=== PATIENT | female | born 2000 | race American Indian/Alaskan Native ===

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

== ENCOUNTER 2021-11-28 14:46 | Outpatient (CLI) | payer MEDICAID ==
[2021-11-28 15:17] VITALS: BP 123/72
--- NOTE | 2021-11-28 17:15 | Ultrasound Report ---
US OB BPP wo non-stress, US OB limited INDICATION: BPP, ELDA for wellbeing. TECHNIQUE: Transabdominal. COMPARISON: None available. FINDINGS: There is a single intrauterine . Heart Rate: 166 beats per minute. Position: cephalic. Amniotic Fluid Volume: normal Amniotic Fluid Index (ELDA) in cm (if calculated): 11.6. Biophysical Profile: breathing movements: 2 movements:2 posture and tone:2 Qualitative amniotic fluid volume: 2 IMPRESSION: 1. Amniotic fluid is normal. Biophysical profile is 8/8. Signer Name: Efren Christian MD Signed: 11/28/2021 5:11 PM Workstation Name: [id number]
== END 2021-11-28 17:36 | disposition home or self-care (01) ==
LOC: TRG 14:46 → APU 14:47 → TRG 17:36
PROVIDERS: ATTEND Obstetrics & Gynecology
DX: Z34.93 Encounter for supervision of normal pregnancy, unspecified, third trimester (principal); Z3A.39 39 weeks gestation of pregnancy
CPT/HCPCS: 76815; 76819

== ENCOUNTER 2021-11-29 22:21 | Inpatient (IN) | payer MEDICAID ==
[2021-11-30] MEDS ORDERED: METHYLERGONOVINE MALEATE 0.2 MG/ML VIAL IM PRN (00:21)
[2021-11-30] MEDS ORDERED: LOPERAMIDE 2 MG CAP PO PRN (00:21)
[2021-11-30] MEDS ORDERED: fentaNYL 100 MCG/2 ML INJ IV PRN (00:21)
[2021-11-30] MEDS ORDERED: MINERAL OIL 30 ML ORAL LIQD PO PRN (00:21)
[2021-11-30] MEDS ORDERED: CARBOPROST TROMETHAMINE 250 MCG/1 ML INJ IM PRN (00:21)
[2021-11-30] MEDS ORDERED: LIDOCAINE (2%) 20 MG/1 ML VIAL 20 ML MDV INFILTRATI ONE (00:21)
[2021-11-30] MEDS ORDERED: ePHEDrine SULFATE 50 MG/1 ML INJ IV PRN ×2 (00:21→06:35)
[2021-11-30] MEDS ORDERED: miSOPROStol 200 MCG TAB PR PRN (00:21)
[2021-11-30] MEDS ORDERED: OXYTOCIN 10 UNIT/1 ML INJ IM PRN (00:21)
[2021-11-30] MEDS ORDERED: AMPICILLIN/NS 2 GM/100 ML 2 GM/100 ML BAG IV ONE (00:21)
[2021-11-30] MEDS ORDERED: ACETAMINOPHEN 325 MG TAB PO PRN (00:21)
[2021-11-30] MEDS ORDERED: TERBUTALINE 1 MG/1 ML INJ SUB-Q PRN (00:21)
[2021-11-30] MEDS ORDERED: NalbUPHINE 10 MG/1 ML INJ IV PRN (00:21)
--- NOTE | 2021-11-30 00:52 | History and Physical Report ---
History of Present Illness Date of examination: 11/30/21 Date of admission: 11/30/2021 Chief complaint: Contractions History of present illness: 21 year old presents to L&D with contractions. Patient received care at [facility]. No records are available but records have been requested. Patient states her EDC is 11/30/21 (patient states this EDC was based on 8 week US). Patient is unsure about when her LMP was but thinks it was in January 2021. Patient reports she felt leaking of fluid about 3 hours ago but has not continued to leak and ROM plus is negative in triage. significant for the following: GBS positive, obesity. labs were drawn upon patient's arrival in L&D. Past History Past Medical History: other (obesity) Past Surgical History: no surgical history [facility] History: denies: abnormal PAP smear, chlamydia, gonorrhea, hepatitis B, hepatitis C, herpes, HIV, syphilis, trichomonas Family/Genetic History: none Social history: lives with family, full code. denies: smoking, alcohol abuse, prescription drug abuse, IV drug use - Obstetrical History Expected Date of Delivery: 11/30/21 Actual Gestation: 40 Week(s) 0 Day(s) : 1 Para: 0 Hx # Term Pregnancies: 0 Number of Pregnancies: 0 Spontaneous Abortions: 0 Induced : 0 Number of Living Children: 0 Medications and Allergies Allergies Allergy/AdvReac Type Severity Reaction Status Date / Time No Known Allergies Allergy Verified 11/29/21 22:38 Active Meds: Active Medications Acetaminophen (Acetaminophen 325 Mg Tab) 650 mg PO Q4H PRN PRN Reason: Pain, Mild (1-3) Carboprost Tromethamine (Carboprost Tromethamine 250 Mcg/1 Ml Inj) 250 mcg IM ONCE PRN PRN Reason: Uterine Bleeding Ephedrine Sulfate (Ephedrine Sulfate 50 Mg/1 Ml Inj) 10 mg IV Q2M PRN PRN Reason: Hypotension Fentanyl (Fentanyl 100 Mcg/2 Ml Inj) 100 mcg IV Q2H PRN PRN Reason: Pain,Severe (7-10) LABOR PAIN Oxytocin/Sodium Chloride (Pitocin/Ns 30 Unit/500ml) 30 units in 500 mls @ 2 mls/hr IV TITR GLEN; Protocol Lactated Ringer's (Lactated Ringers) 1,000 mls @ 125 mls/hr IV DIRECT GLEN Oxytocin/Sodium Chloride (Pitocin/Ns 30 Unit/500ml) 30 units in 500 mls @ 40 mls/hr IV TITR GLEN; Protocol Ampicillin Sodium (Ampicillin/Ns 2 Gm/100 Ml) 2 gm in 100 mls @ 100 mls/hr IV ONCE ONE; Protocol Stop: 11/30/21 01:20 Ampicillin Sodium (Ampicillin/Ns 1 Gm/50 Ml) 1 gm in 50 mls @ 100 mls/hr IV Q4H GLEN; Protocol Loperamide HCl (Loperamide 2 Mg Cap) 2 mg PO ONCE PRN PRN Reason: give with Hemabate Methylergonovine Maleate (Methylergonovine Maleate 0.2 Mg/Ml Vial) 0.2 mg IM ONCE PRN PRN Reason: Uterine Bleeding Mineral Oil (Mineral Oil 30 Ml Oral Liqd) 30 ml PO QHS PRN PRN Reason: Constipation Misoprostol (Misoprostol 200 Mcg Tab) 800 mcg ME ONCE PRN PRN Reason: Uterine Bleeding Nalbuphine HCl (Nalbuphine 10 Mg/1 Ml Inj) 10 mg IV Q2H PRN PRN Reason: Pain, Moderate (4-6) Oxytocin (Oxytocin 10 Unit/1 Ml Inj) 10 unit IM ONCE PRN PRN Reason: Uterine Bleeding Terbutaline Sulfate (Terbutaline 1 Mg/1 Ml Inj) 0.25 mg SUB-Q ONCE PRN PRN Reason: Hyperstimulation/Hypertonicity Review of Systems All systems: negative (contractions, leaking of fluid) - Vital Signs Vital signs: Vital Signs Temp Pulse Resp BP 98.6 F 84 18 136/78 11/29/21 22:47 11/29/21 22:47 11/29/21 22:47 11/29/21 22:47 Temp Pulse Resp BP Pulse Ox 98.6 F 82 18 140/86 96 11/29/21 22:47 11/30/21 00:47 11/29/21 22:47 11/29/21 23:53 11/30/21 00:47 - Physical Exam Abdomen: Positive: normal appearance, soft. Negative: distention, tenderness, g uarding, rigidity Genitourinary (Female): Positive: normal external genitalia, normal perenium. Negative: perineal/vulvar lesions Vagina: Positive: other (small amount of clear fluid noted) Uterus: Positive: enlarged. Negative: tender Anus/Rectum: Positive: normal perianal skin Extremities: Negative: tenderness - Obstetrical FHR: category 1 Uterine Contraction Monitor Mode: External Cervical Dilatation: 6 Cervical Effacement Percentage: 80 (bulging forebag) station: -3 Uterine Contraction Pattern: Regular Uterine Contraction Intensity: Moderate Results Result Diagrams: 11/30/21 01:00 All other labs normal. Assessment and Plan A: at 40 weeks gestation. Active labor. GBS positive. Obesity. No records available. P: Admit. EFM. GBS prophylaxis. Epidural if desired. records requested. labs drawn upon admission.
[2021-11-30] MEDS ORDERED: OXYTOCIN DRIP 30 UNITS/500 ML BAG IV SCH ×3 (01:00→19:34)
[2021-11-30 01:18] LABS: Hematocrit 40.6 % (30.3-42.9); Hemoglobin 13.1 gm/dl (10.1-14.3); Mean Corpuscular HGB Conc 32 % (30-34); Mean Corpuscular Volume 84 fl (79-97); Platelet Count 175 K/mm3 (140-440); Red Blood Count 4.85 M/mm3 (3.65-5.03); Red Cell Distribution Width 13.7 % (13.2-15.2)
[2021-11-30 01:32] LABS: Alanine Aminotransferase 7 units/L (7-56); Albumin 3.5 g/dL (3.9-5); Blood Urea Nitrogen 9 mg/dL (7-17); Calcium 8.8 mg/dL (8.4-10.2); Hemolysis Index 1
[2021-11-30 01:38] LABS: BUN/Creatinine Ratio 18
[2021-11-30 01:42] LABS: Hepatitis C Virus Antibody Non-Reactive (NonReactive)
[2021-11-30] MEDS: LACTATED RINGERS 1,000 ML IV SCH ×4 (01:46→15:53)
[2021-11-30 02:30] LABS: Uric Acid 3.9 mg/dL (3.5-7.6)
--- NOTE | 2021-11-30 02:49 | Ultrasound Report ---
US OB LIMITED INDICATION / CLINICAL INFORMATION: Location of placenta, EFW, and EDC. COMPARISON: None available. FINDINGS: There is a single intrauterine with an estimated sonographic gestational age of 34 weeks 6 days and an EDC of 01/05/22. The heart rate is 137 bpm. presentation is cephalic. The bijal centa is located laterally on the right, is grade 2 and is free of the os. The estimated weight is 2901 +/- 429 g. Signer Name: Akbar Martines MD Signed: 11/30/2021 2:44 AM Workstation Name: [id number]
[2021-11-30] MEDS ORDERED: BETAMET ACET/BETAMET NA PH 6 MG/ML INJ 5 ML MDV IM ONE (03:08)
--- NOTE | 2021-11-30 03:15 | Event Note ---
Date: 11/30/21 Have requested records twice but so far have not received records. So US was ordered for placental location, EFW, EDC. US report says EGA of 34 weeks, 6 days. Celestone ordered. serology panel negative, rubella immune. Will inform re: discrepancy in gestational age. Spoke with patient re: this.
[2021-11-30] MEDS ORDERED: BUPIVACAINE/PF (0.25%) 2.5 MG/ML 10 ML VIAL INFILTRATI ONE (06:01)
[2021-11-30] MEDS: AMPICILLIN/NS 1 GM/50 ML 1 GM/50 ML BAG IV SCH ×3 (06:15→13:48)
--- NOTE | 2021-11-30 06:34 | Anesthesia Consultation ---
Anesthesia Consult and Med Hx Date of service: 11/30/21 - Airway Anesthetic Teeth Evaluation: Poor ROM Head & Neck: Adequate Mental/Hyoid Distance: Adequate Mallampati Class: Class II Intubation Access Assessment: Probably Good - Pulmonary Exam CTA: Yes - Cardiac Exam Cardiac Exam: RRR - Pre-Operative Health Status ASA Pre-Surgery Classification: ASA2 Proposed Anesthetic Plan: Epidural - Pulmonary Hx Smoking: No Hx Asthma: No Hx Respiratory Symptoms: No SOB: No COPD: No - Cardiovascular System Hx Hypertension: No - Central Nervous System Hx Neuromuscular Disorder: No Hx Seizures: No Hx Back Pain: No Hx Psychiatric Problems: No - Gastrointestinal Hx Gastroesophageal Reflux Disease: Yes - Endocrine Hx Renal Disease: No Hx End Stage Renal Disease: No Hx Hypothyroidism: No Hx Hyperthyroidism: No - Hematic Hx Anemia: Yes Hx Sickle Cell Disease: No - Other Systems Hx Alcohol Use: No Hx Substance Use: Yes Hx Obesity: Yes
[2021-11-30] MEDS ORDERED: NALOXONE 2 MG/2 ML INJ IV PRN (06:35)
--- NOTE | 2021-11-30 06:35 | Progress Note ---
Labor Epidural - Labor Epidural Start Time: 06:10 Stop Time: 06:20 Performed by:: JEFF DE SANTIAGO Procedure: Patient is requesting epidural for labor pain. H&P and labs reviewed. Procedure explained, questions answered, consent obtained. Patient placed in sitting position with monitors applied. Timeout performed immediately before start of procedure. Prep/drape in usual sterile fashion. Skin localized 3 mL 1% lidocaine at L[3]-L[4] interspace. 17-gauge Tuohy epidural needle advanced to ELIEZER with saline at [8] cm. No blood/CSF noted via epidural needle. Epidural catheter advanced to [12] cm. Negative aspiration for blood and CSF via catheter, negative response to test dose 3 ml 1.5% lidocaine w/ Epi. Sterile dressing applied followed by tape reinforcement. Patient tolerated procedure well. No immediate complications noted.
--- NOTE | 2021-11-30 06:38 | Event Note ---
Date: 11/30/21 SVE /-3.
[2021-11-30] MEDS: fentaNYL-BUPIV 2 MCG/ML-0.125% 200 MCG/100 ML BAG EPIDURAL SCH ×2 (07:00→15:47)
[2021-11-30 08:19] LABS: Bilirubin,Urine NEG (Negative); Blood,Urine NEG (Negative); Color,Urine Yellow (Yellow); RBC,Urine < 1.0 /HPF (0.0-6.0); Urobilinogen,Urine < 2.0 mg/dL (<2.0)
--- NOTE | 2021-11-30 08:24 | Event Note ---
Date: 11/30/21 pt evaluated when no records available in [facility] records per my construction sales manager, Jovanna. I spoke with patient in detail and she gave me her follow up clinic card which is not from [facility] but had a pic for [facility] therefore pt to be transferred to Dr. Flanagan and charge nurse aware. Pt also told the plan and GINA Kerr sent a text to Dr. Flanagan and I left a voicemail on his personal phone. Plan of care to be transferred back to [facility] her actual care provider. All questions encouraged and answered. I also later received confirmation via Dr. Flanagan via text that he will take over care of the patient and on the way to the hospital.
[2021-11-30 08:29] LABS: Amphetamine Screen,Urine Negative; Benzodiazepines Screen,Urine Negative; Cannabinoid Screen,Urine Negative; Cocaine Screen,Urine Negative; Methadone Screen,Urine Negative; Opiate Screen,Urine Negative
[2021-11-30] MEDS ORDERED: OXYTOCIN DRIP 30,000 MILLIUNITS/500 ML BAG IV ONE (12:00)
--- NOTE | 2021-11-30 12:01 | Progress Note ---
Assessment and Plan - Patient Problems (1) Active labor at term Current Visit: Yes Status: Acute Plan to address problem: Patient with no change in cervix. Discussed with the patient procedure rupture membranes and placed in internal monitoring to monitor the baby's heart rate and the strength of her contractions. Also discussed starting Pitocin augmentation. All patient's questions answered desires to proceed. Performed artificial partial rupture of membranes revealing clear fluid. Intrauterine pressure catheter and scalp electrode placed. (2) Small for dates affecting management of mother Current Visit: Yes Status: Acute Qualifiers: Fetus number: single or unspecified fetus Trimester: third trimester Qualified Code(s): O36.5930 - Maternal care for other known or suspected poor growth, third trimester, not applicable or unspecified Subjective - Subjective Date of service: 11/30/21 Interval history: Patient comfortable with epidural Patient reports: movement normal, contractions (Irregular) Objective - Vital Signs Vital Signs: Vital Signs - 12hr 11/30/21 11/30/21 11/30/21 00:03 00:08 00:47 Temperature Pulse Rate 76 85 82 Respiratory Rate Blood Pressure Blood Pressure [Left] O2 Sat by Pulse 99 99 96 Oximetry O2 Sat by Pulse Oximetry [ Anterior Bilateral Throughout] 11/30/21 11/30/21 11/30/21 00:52 00:53 00:57 Temperature 97.9 F Pulse Rate 82 86 88 Respiratory 20 Rate Blood Pressure 130/86 Blood Pressure [Left] O2 Sat by Pulse 98 94 97 Oximetry O2 Sat by Pulse 98 Oximetry [ Anterior Bilateral Throughout] 11/30/21 11/30/21 11/30/21 01:02 01:03 01:07 Temperature Pulse Rate 97 H 84 74 Respiratory Rate Blood Pressure Blood Pressure [Left] O2 Sat by Pulse 96 94 96 Oximetry O2 Sat by Pulse Oximetry [ Anterior Bilateral Throughout] 11/30/21 11/30/21 11/30/21 01:12 01:17 01:22 Temperature Pulse Rate 83 85 89 Respiratory Rate Blood Pressure Blood Pressure [Left] O2 Sat by Pulse 96 99 96 Oximetry O2 Sat by Pulse Oximetry [ Anterior Bilateral Throughout] 11/30/21 11/30/21 11/30/21 01:27 01:32 01:37 Temperature Pulse Rate 65 93 H 80 Respiratory Rate Blood Pressure Blood Pressure [Left] O2 Sat by Pulse 98 100 98 Oximetry O2 Sat by Pulse Oximetry [ Anterior Bilateral Throughout] 11/30/21 11/30/21 11/30/21 01:42 01:43 01:47 Temperature Pulse Rate 84 90 84 Respiratory Rate Blood Pressure 128/82 Blood Pressure [Left] O2 Sat by Pulse 98 98 Oximetry O2 Sat by Pulse Oximetry [ Anterior Bilateral Throughout] 11/30/21 11/30/21 11/30/21 01:52 01:57 02:02 Temperature Pulse Rate 88 81 86 Respiratory Rate Blood Pressure Blood Pressure [Left] O2 Sat by Pulse 99 97 99 Oximetry O2 Sat by Pulse Oximetry [ Anterior Bilateral Throughout] 11/30/21 11/30/21 11/30/21 02:07 02:12 02:17 Temperature Pulse Rate 89 90 82 Respiratory Rate Blood Pressure Blood Pressure [Left] O2 Sat by Pulse 98 98 96 Oximetry O2 Sat by Pulse Oximetry [ Anterior Bilateral Throughout] 11/30/21 11/30/21 11/30/21 02:22 02:27 02:32 Temperature Pulse Rate 84 89 88 Respiratory Rate Blood Pressure Blood Pressure [Left] O2 Sat by Pulse 97 95 97 Oximetry O2 Sat by Pulse Oximetry [ Anterior Bilateral Throughout] 11/30/21 11/30/21 11/30/21 02:37 02:42 02:47 Temperature Pulse Rate 87 79 78 Respiratory Rate Blood Pressure Blood Pressure [Left] O2 Sat by Pulse 98 99 98 Oximetry O2 Sat by Pulse Oximetry [ Anterior Bilateral Throughout] 11/30/21 11/30/21 11/30/21 02:52 03:09 03:14 Temperature Pulse Rate 82 88 79 Respiratory Rate Blood Pressure Blood Pressure [Left] O2 Sat by Pulse 98 96 98 Oximetry O2 Sat by Pulse Oximetry [ Anterior Bilateral Throughout] 11/30/21 11/30/21 11/30/21 03:19 03:24 03:29 Temperature Pulse Rate 77 79 80 Respiratory Rate Blood Pressure Blood Pressure [Left] O2 Sat by Pulse 100 100 99 Oximetry O2 Sat by Pulse Oximetry [ Anterior Bilateral Throughout] 11/30/21 11/30/21 11/30/21 03:34 03:39 03:44 Temperature Pulse Rate 84 81 91 H Respiratory Rate Blood Pressure Blood Pressure [Left] O2 Sat by Pulse 99 99 99 Oximetry O2 Sat by Pulse Oximetry [ Anterior Bilateral Throughout] 11/30/21 11/30/21 11/30/21 03:49 03:54 03:59 Temperature Pulse Rate 89 88 94 H Respiratory Rate Blood Pressure Blood Pressure [Left] O2 Sat by Pulse 100 99 100 Oximetry O2 Sat by Pulse Oximetry [ Anterior Bilateral Throughout] 11/30/21 11/30/21 11/30/21 04:04 04:09 04:14 Temperature Pulse Rate 94 H 79 82 Respiratory Rate Blood Pressure Blood Pressure [Left] O2 Sat by Pulse 98 100 100 Oximetry O2 Sat by Pulse Oximetry [ Anterior Bilateral Throughout] 11/30/21 11/30/21 11/30/21 04:19 04:24 04:29 Temperature Pulse Rate 90 86 82 Respiratory Rate Blood Pressure Blood Pressure [Left] O2 Sat by Pulse 98 99 99 Oximetry O2 Sat by Pulse Oximetry [ Anterior Bilateral Throughout] 11/30/21 11/30/21 11/30/21 04:34 04:39 04:44 Temperature Pulse Rate 81 94 H 81 Respiratory Rate Blood Pressure Blood Pressure [Left] O2 Sat by Pulse 100 98 100 Oximetry O2 Sat by Pulse Oximetry [ Anterior Bilateral Throughout] 11/30/21 11/30/21 11/30/21 04:47 04:49 04:54 Temperature Pulse Rate 82 86 84 Respiratory Rate Blood Pressure Blood Pressure [Left] O2 Sat by Pulse 94 98 99 Oximetry O2 Sat by Pulse Oximetry [ Anterior Bilateral Throughout] 11/30/21 11/30/21 11/30/21 05:06 05:11 05:16 Temperature Pulse Rate 96 H 88 78 Respiratory Rate Blood Pressure Blood Pressure [Left] O2 Sat by Pulse 100 99 99 Oximetry O2 Sat by Pulse Oximetry [ Anterior Bilateral Throughout] 11/30/21 11/30/21 11/30/21 05:21 05:26 05:31 Temperature Pulse Rate 84 79 90 Respiratory Rate Blood Pressure Blood Pressure [Left] O2 Sat by Pulse 98 100 98 Oximetry O2 Sat by Pulse Oximetry [ Anterior Bilateral Throughout] 11/30/21 11/30/21 11/30/21 05:36 05:41 05:46 Temperature Pulse Rate 89 83 87 Respiratory Rate Blood Pressure Blood Pressure [Left] O2 Sat by Pulse 99 99 99 Oximetry O2 Sat by Pulse Oximetry [ Anterior Bilateral Throughout] 11/30/21 11/30/21 11/30/21 05:47 05:51 05:56 Temperature Pulse Rate 88 86 96 H Respiratory Rate Blood Pressure 119/73 Blood Pressure [Left] O2 Sat by Pulse 99 99 Oximetry O2 Sat by Pulse Oximetry [ Anterior Bilateral Throughout] 11/30/21 11/30/21 11/30/21 05:59 06:01 06:02 Temperature Pulse Rate 80 88 89 Respiratory Rate Blood Pressure 123/77 123/76 Blood Pressure [Left] O2 Sat by Pulse 100 Oximetry O2 Sat by Pulse Oximetry [ Anterior Bilateral Throughout] 11/30/21 11/30/21 11/30/21 06:04 06:06 06:08 Temperature Pulse Rate 84 95 H 97 H Respiratory Rate Blood Pressure 132/81 133/78 135/76 Blood Pressure [Left] O2 Sat by Pulse 100 Oximetry O2 Sat by Pulse Oximetry [ Anterior Bilateral Throughout] 11/30/21 11/30/21 11/30/21 06:11 06:12 06:16 Temperature Pulse Rate 94 H 93 H 111 H Respiratory Rate Blood Pressure 127/67 121/70 Blood Pressure [Left] O2 Sat by Pulse 100 100 Oximetry O2 Sat by Pulse Oximetry [ Anterior Bilateral Throughout] 11/30/21 11/30/21 11/30/21 06:18 06:20 06:21 Temperature Pulse Rate 90 83 95 H Respiratory Rate Blood Pressure 128/71 129/76 Blood Pressure [Left] O2 Sat by Pulse 99 Oximetry O2 Sat by Pulse Oximetry [ Anterior Bilateral Throughout] 11/30/21 11/30/21 11/30/21 06:22 06:24 06:26 Temperature Pulse Rate 99 H 93 H 89 Respiratory Rate Blood Pressure 128/77 134/82 134/83 Blood Pressure [Left] O2 Sat by Pulse 100 Oximetry O2 Sat by Pulse Oximetry [ Anterior Bilateral Throughout] 11/30/21 11/30/21 11/30/21 06:28 06:30 06:31 Temperature Pulse Rate 90 93 H 92 H Respiratory Rate Blood Pressure 121/68 107/62 Blood Pressure [Left] O2 Sat by Pulse 98 Oximetry O2 Sat by Pulse Oximetry [ Anterior Bilateral Throughout] 11/30/21 11/30/21 11/30/21 06:32 06:34 06:36 Temperature Pulse Rate 90 93 H 91 H Respiratory Rate Blood Pressure 107/58 111/64 119/70 Blood Pressure [Left] O2 Sat by Pulse 99 Oximetry O2 Sat by Pulse Oximetry [ Anterior Bilateral Throughout] 11/30/21 11/30/21 11/30/21 06:38 06:40 06:41 Temperature Pulse Rate 85 88 86 Respiratory Rate Blood Pressure 121/65 123/60 Blood Pressure [Left] O2 Sat by Pulse 97 Oximetry O2 Sat by Pulse Oximetry [ Anterior Bilateral Throughout] 11/30/21 11/30/21 11/30/21 06:42 06:44 06:46 Temperature 98.4 F Pulse Rate 90 95 H 101 H Respiratory 20 Rate Blood Pressure 125/64 124/71 130/67 Blood Pressure [Left] O2 Sat by Pulse 99 99 Oximetry O2 Sat by Pulse Oximetry [ Anterior Bilateral Throughout] 11/30/21 11/30/21 11/30/21 06:48 06:50 06:51 Temperature Pulse Rate 92 H 87 84 Respiratory Rate Blood Pressure 136/68 110/66 Blood Pressure [Left] O2 Sat by Pulse 98 Oximetry O2 Sat by Pulse Oximetry [ Anterior Bilateral Throughout] 11/30/21 11/30/21 11/30/21 06:52 06:54 06:56 Temperature Pulse Rate 85 99 H 90 Respiratory Rate Blood Pressure 120/72 117/87 136/70 Blood Pressure [Left] O2 Sat by Pulse 99 Oximetry O2 Sat by Pulse Oximetry [ Anterior Bilateral Throughout] 11/30/21 11/30/21 11/30/21 06:58 07:00 07:01 Temperature Pulse Rate 97 H 96 H 88 Respiratory Rate Blood Pressure 142/69 131/68 Blood Pressure [Left] O2 Sat by Pulse 99 Oximetry O2 Sat by Pulse Oximetry [ Anterior Bilateral Throughout] 11/30/21 11/30/21 11/30/21 07:02 07:06 07:07 Temperature 98.4 F Pulse Rate 92 H 92 H 81 Respiratory 16 Rate Blood Pressure 133/68 Blood Pressure 133/68 [Left] O2 Sat by Pulse 100 98 Oximetry O2 Sat by Pulse 98 Oximetry [ Anterior Bilateral Throughout] 11/30/21 11/30/21 11/30/21 07:11 07:16 07:17 Temperature Pulse Rate 92 H 93 H 93 H Respiratory Rate Blood Pressure 125/71 Blood Pressure [Left] O2 Sat by Pulse 98 97 Oximetry O2 Sat by Pulse Oximetry [ Anterior Bilateral Throughout] 11/30/21 11/30/21 11/30/21 07:21 07:26 07:31 Temperature Pulse Rate 85 95 H 93 H Respiratory Rate Blood Pressure Blood Pressure [Left] O2 Sat by Pulse 99 99 98 Oximetry O2 Sat by Pulse Oximetry [ Anterior Bilateral Throughout] 11/30/21 11/30/21 11/30/21 07:32 07:36 07:41 Temperature Pulse Rate 87 84 85 Respiratory Rate Blood Pressure 121/71 Blood Pressure [Left] O2 Sat by Pulse 98 98 Oximetry O2 Sat by Pulse Oximetry [ Anterior Bilateral Throughout] 11/30/21 11/30/21 11/30/21 07:46 07:47 07:51 Temperature Pulse Rate 90 82 80 Respiratory Rate Blood Pressure 114/65 Blood Pressure [Left] O2 Sat by Pulse 97 97 Oximetry O2 Sat by Pulse Oximetry [ Anterior Bilateral Throughout] 11/30/21 11/30/21 11/30/21 07:56 08:01 08:02 Temperature Pulse Rate 83 87 83 Respiratory Rate Blood Pressure 113/64 Blood Pressure [Left] O2 Sat by Pulse 97 97 Oximetry O2 Sat by Pulse Oximetry [ Anterior Bilateral Throughout] 11/30/21 11/30/21 11/30/21 08:06 08:11 08:16 Temperature Pulse Rate 76 98 H 83 Respiratory Rate Blood Pressure Blood Pressure [Left] O2 Sat by Pulse 98 99 99 Oximetry O2 Sat by Pulse Oximetry [ Anterior Bilateral Throughout] 11/30/21 11/30/21 11/30/21 08:17 08:21 08:26 Temperature Pulse Rate 86 92 H 78 Respiratory Rate Blood Pressure 117/63 Blood Pressure [Left] O2 Sat by Pulse 100 98 Oximetry O2 Sat by Pulse Oximetry [ Anterior Bilateral Throughout] 11/30/21 11/30/21 11/30/21 08:31 08:32 08:36 Temperature Pulse Rate 82 96 H 84 Respiratory Rate Blood Pressure 112/60 Blood Pressure [Left] O2 Sat by Pulse 97 98 Oximetry O2 Sat by Pulse Oximetry [ Anterior Bilateral Throughout] 11/30/21 11/30/21 11/30/21 08:41 08:46 08:47 Temperature Pulse Rate 82 80 80 Respiratory Rate Blood Pressure 112/61 Blood Pressure [Left] O2 Sat by Pulse 98 98 Oximetry O2 Sat by Pulse Oximetry [ Anterior Bilateral Throughout] 11/30/21 11/30/21 11/30/21 08:51 08:56 09:01 Temperature Pulse Rate 98 H 91 H 82 Respiratory Rate Blood Pressure Blood Pressure [Left] O2 Sat by Pulse 99 97 98 Oximetry O2 Sat by Pulse Oximetry [ Anterior Bilateral Throughout] 11/30/21 11/30/21 11/30/21 09:06 09:11 09:16 Temperature Pulse Rate 76 77 84 Respiratory Rate Blood Pressure Blood Pressure [Left] O2 Sat by Pulse 99 98 98 Oximetry O2 Sat by Pulse Oximetry [ Anterior Bilateral Throughout] 11/30/21 11/30/21 11/30/21 09:17 09:21 09:26 Temperature Pulse Rate 78 80 80 Respiratory Rate Blood Pressure 96/52 Blood Pressure [Left] O2 Sat by Pulse 98 98 Oximetry O2 Sat by Pulse Oximetry [ Anterior Bilateral Throughout] 11/30/21 11/30/21 11/30/21 09:31 09:32 09:36 Temperature Pulse Rate 83 77 78 Respiratory Rate Blood Pressure 98/56 Blood Pressure [Left] O2 Sat by Pulse 98 98 Oximetry O2 Sat by Pulse Oximetry [ Anterior Bilateral Throughout] 11/30/21 11/30/21 11/30/21 09:41 09:46 09:47 Temperature Pulse Rate 77 85 92 H Respiratory Rate Blood Pressure 98/56 Blood Pressure [Left] O2 Sat by Pulse 98 98 Oximetry O2 Sat by Pulse Oximetry [ Anterior Bilateral Throughout] 11/30/21 11/30/21 11/30/21 09:51 09:56 10:01 Temperature Pulse Rate 75 83 82 Respiratory Rate Blood Pressure Blood Pressure [Left] O2 Sat by Pulse 98 100 99 Oximetry O2 Sat by Pulse Oximetry [ Anterior Bilateral Throughout] 11/30/21 11/30/21 11/30/21 10:02 10:06 10:11 Temperature Pulse Rate 68 78 81 Respiratory Rate Blood Pressure 98/55 Blood Pressure [Left] O2 Sat by Pulse 100 98 Oximetry O2 Sat by Pulse Oximetry [ Anterior Bilateral Throughout] 11/30/21 11/30/21 11/30/21 10:16 10:17 10:21 Temperature Pulse Rate 70 71 72 Respiratory Rate Blood Pressure 91/55 Blood Pressure [Left] O2 Sat by Pulse 99 97 Oximetry O2 Sat by Pulse Oximetry [ Anterior Bilateral Throughout] 11/30/21 11/30/21 11/30/21 10:26 10:31 10:32 Temperature Pulse Rate 78 77 80 Respiratory Rate Blood Pressure 85/61 Blood Pressure [Left] O2 Sat by Pulse 99 98 Oximetry O2 Sat by Pulse Oximetry [ Anterior Bilateral Throughout] 11/30/21 11/30/21 11/30/21 10:36 10:41 10:46 Temperature Pulse Rate 89 74 113 H Respiratory Rate Blood Pressure Blood Pressure [Left] O2 Sat by Pulse 98 98 99 Oximetry O2 Sat by Pulse Oximetry [ Anterior Bilateral Throughout] 11/30/21 11/30/21 11/30/21 10:48 10:51 10:52 Temperature 98.7 F Pulse Rate 121 H 100 H 94 H Respiratory 18 Rate Blood Pressure 124/78 Blood Pressure 124/78 [Left] O2 Sat by Pulse 100 100 Oximetry O2 Sat by Pulse Oximetry [ Anterior Bilateral Throughout] 11/30/21 11/30/21 11/30/21 10:56 11:01 11:06 Temperature Pulse Rate 94 H 99 H 96 H Respiratory Rate Blood Pressure Blood Pressure [Left] O2 Sat by Pulse 100 100 100 Oximetry O2 Sat by Pulse Oximetry [ Anterior Bilateral Throughout] 11/30/21 11/30/21 11/30/21 11:11 11:16 11:17 Temperature Pulse Rate 86 84 82 Respiratory Rate Blood Pressure 116/57 Blood Pressure [Left] O2 Sat by Pulse 99 99 Oximetry O2 Sat by Pulse Oximetry [ Anterior Bilateral Throughout] 11/30/21 11/30/21 11/30/21 11:21 11:26 11:31 Temperature Pulse Rate 82 86 82 Respiratory Rate Blood Pressure Blood Pressure [Left] O2 Sat by Pulse 98 98 98 Oximetry O2 Sat by Pulse Oximetry [ Anterior Bilateral Throughout] 11/30/21 11/30/21 11/30/21 11:32 11:36 11:41 Temperature Pulse Rate 78 83 82 Respiratory Rate Blood Pressure 109/52 Blood Pressure [Left] O2 Sat by Pulse 98 98 Oximetry O2 Sat by Pulse Oximetry [ Anterior Bilateral Throughout] 11/30/21 11/30/21 11/30/21 11:46 11:51 11:56 Temperature Pulse Rate 85 72 75 Respiratory Rate Blood Pressure Blood Pressure [Left] O2 Sat by Pulse 99 99 98 Oximetry O2 Sat by Pulse Oximetry [ Anterior Bilateral Throughout] - Exam Breasts: deferred Cardiovascular: Regular rate Lungs: Normal air movement Abdomen: Present: normal appearance, soft Uterus: Present: firm FHR: category 1 Uterine Contraction Monitor Mode: External Uterine Contraction Pattern: Irregular Extremities: edema - Labs Labs: Abnormal Labs 11/30/21 11/30/21 11/30/21 01:00 01:00 01:00 MCH 27 L Sodium 136 L Carbon Dioxide 19 L Creatinine 0.5 L Alkaline Phosphatase 197 H Lactate Dehydrogenase 195 H Albumin 3.5 L Laboratory Results - last 24 hr 11/29/21 11/30/21 11/30/21 22:50 00:57 00:57 WBC RBC Hgb Hct MCV MCH MCHC RDW Plt Count Sodium Potassium Chloride Carbon Dioxide Anion Gap BUN Creatinine Estimated GFR BUN/Creatinine Ratio Glucose Uric Acid Calcium Total Bilirubin AST ALT Alkaline Phosphatase Lactate Dehydrogenase Total Protein Albumin Albumin/Globulin Ratio Urine Color Urine Turbidity Urine pH Ur Specific [place] Urine Protein Urine Glucose (UA) Urine Ketones Urine Blood Urine Nitrite Urine Bilirubin Urine Urobilinogen Ur Leukocyte Esterase Urine WBC (Auto) Urine RBC (Auto) Membranes Rupture Negative Urine Opiates Screen Urine Methadone Screen Ur Barbiturates Screen Ur Phencyclidine Scrn Ur Amphetamines Screen U Benzodiazepines Scrn Urine Cocaine Screen U Marijuana (THC) Screen Drugs of Abuse Note Syphilis IgG Antibody Nonreactive SARS-CoV-2 (PCR) Hep Bs Antigen Non-reactive Hepatitis C Antibody Non-reactive HIV 1&2 Antibody Rapid HIV P24 Antigen Rubella IgG Antibody Immune Blood Type Antibody Screen 11/30/21 11/30/21 11/30/21 00:57 01:00 01:00 WBC 10.5 RBC 4.85 Hgb 13.1 Hct 40.6 MCV 84 MCH 27 L MCHC 32 RDW 13.7 Plt Count 175 Sodium Potassium Chloride Carbon Dioxide Anion Gap BUN Creatinine Estimated GFR BUN/Creatinine Ratio Glucose Uric Acid Calcium Total Bilirubin AST ALT Alkaline Phosphatase Lactate Dehydrogenase Total Protein Albumin Albumin/Globulin Ratio Urine Color Urine Turbidity Urine pH Ur Specific [place] Urine Protein Urine Glucose (UA) Urine Ketones Urine Blood Urine Nitrite Urine Bilirubin Urine Urobilinogen Ur Leukocyte Esterase Urine WBC (Auto) Urine RBC (Auto) Membranes Rupture Urine Opiates Screen Urine Methadone Screen Ur Barbiturates Screen Ur Phencyclidine Scrn Ur Amphetamines Screen U Benzodiazepines Scrn Urine Cocaine Screen U Marijuana (THC) Screen Drugs of Abuse Note Syphilis IgG Antibody SARS-CoV-2 (PCR) Hep Bs Antigen Hepatitis C Antibody HIV 1&2 Antibody Rapid Non react HIV P24 Antigen Non react Rubella IgG Antibody Blood Type O POSITIVE Antibody Screen Negative 11/30/21 11/30/21 11/30/21 01:00 01:00 07:20 WBC RBC Hgb Hct MCV MCH MCHC RDW Plt Count Sodium 136 L Potassium 4.2 Chloride 104.2 Carbon Dioxide 19 L Anion Gap 17 BUN 9 Creatinine 0.5 L Estimated GFR > 60 BUN/Creatinine Ratio 18 Glucose 76 Uric Acid 3.9 Calcium 8.8 Total Bilirubin 0.20 AST 17 ALT 7 Alkaline Phosphatase 197 H Lactate Dehydrogenase 195 H Total Protein 7.0 Albumin 3.5 L Albumin/Globulin Ratio 1.0 Urine Color Yellow Urine Turbidity Clear Urine pH 6.0 Ur Specific [place] 1.029 Urine Protein 30 mg/dl Urine Glucose (UA) Neg Urine Ketones 20 Urine Blood Neg Urine Nitrite Neg Urine Bilirubin Neg Urine Urobilinogen < 2.0 Ur Leukocyte Esterase Neg Urine WBC (Auto) 0.0 Urine RBC (Auto) < 1.0 Membranes Rupture Urine Opiates Screen Urine Methadone Screen Ur Barbiturates Screen Ur Phencyclidine Scrn Ur Amphetamines Screen U Benzodiazepines Scrn Urine Cocaine Screen U Marijuana (THC) Screen Drugs of Abuse Note Syphilis IgG Antibody SARS-CoV-2 (PCR) Hep Bs Antigen Hepatitis C Antibody HIV 1&2 Antibody Rapid HIV P24 Antigen Rubella IgG Antibody Blood Type Antibody Screen 11/30/21 11/30/21 07:20 10:00 WBC RBC Hgb Hct MCV MCH MCHC RDW Plt Count Sodium Potassium Chloride Carbon Dioxide Anion Gap BUN Creatinine Estimated GFR BUN/Creatinine Ratio Glucose Uric Acid Calcium Total Bilirubin AST ALT Alkaline Phosphatase Lactate Dehydrogenase Total Protein Albumin Albumin/Globulin Ratio Urine Color Urine Turbidity Urine pH Ur Specific [place] Urine Protein Urine Glucose (UA) Urine Ketones Urine Blood Urine Nitrite Urine Bilirubin Urine Urobilinogen Ur Leukocyte Esterase Urine WBC (Auto) Urine RBC (Auto) Membranes Rupture Urine Opiates Screen Negative Urine Methadone Screen Negative Ur Barbiturates Screen Negative Ur Phencyclidine Scrn Negative Ur Amphetamines Screen Negative U Benzodiazepines Scrn Negative Urine Cocaine Screen Negative U Marijuana (THC) Screen Negative Drugs of Abuse Note Disclamer Syphilis IgG Antibody SARS-CoV-2 (PCR) Negative Hep Bs Antigen Hepatitis C Antibody HIV 1&2 Antibody Rapid HIV P24 Antigen Rubella IgG Antibody Blood Type Antibody Screen
[2021-11-30] MEDS ORDERED: ONDANSETRON 4 MG/2 ML INJ IV PRN ×2 (13:42→19:34)
--- NOTE | 2021-11-30 15:03 | Event Note ---
Date: 11/30/21 Called to see patient secondary to tracing with decelerations. Pitocin stopped approximately 50 minutes ago secondary to intolerance. Tracing category 1 Pitocin with no change in the patient's cervical exam. Indication for section discussed. Patient informed the risks of the surgery include bleeding possibly bleeding heavy enough to require blood transfusion, infection possible damage to bowel bladder ureter. All questions answered. Patient desires for vaginal delivery so we will restart Pitocin and watch tracing closely. Patient agrees to proceed with if tracing indicate.
[2021-11-30] MEDS ORDERED: METOCLOPRAMIDE 10 MG/2 ML INJ IV ONE (16:12)
[2021-11-30] MEDS ORDERED: BICITRA ORAL LIQD 30ML PO ONE (16:12)
[2021-11-30] MEDS ORDERED: FAMOTIDINE 20 MG/2 ML INJ IV ONE (16:12)
--- NOTE | 2021-11-30 16:16 | Event Note ---
Date: 11/30/21 Restarted Pitocin tracing again start having recurrent late decelerations. Recheck patient with no change in her cervix. Again discussed with patient indication for section and she desires to proceed
[2021-11-30] MEDS ORDERED: BUPIVACAINE/PF (0.5%) 5 MG/1 ML 30 ML VIAL INFILTRATI ONE (16:37)
[2021-11-30] MEDS ORDERED: ONDANSETRON 4 MG/2 ML INJ ONE (16:37)
[2021-11-30] MEDS ORDERED: ceFAZolin/Water 2 GM/20 ML 2 GM/20 ML SYRINGE IV NR (17:00)
[2021-11-30] MEDS ORDERED: SODIUM CHLORIDE 0.9% IRR 1,500 ML BOTTLE IR ONE (17:05)
[2021-11-30] MEDS ORDERED: ceFAZolin/STERILE WATER 2 GM/20 ML SYRINGE IV ONE (17:05)
[2021-11-30] MEDS ORDERED: WATER FOR IRRIG STERILE 1,500 ML BOTTLE IR ONE (17:05)
[2021-11-30] MEDS ORDERED: BUPIVACAINE/PF (0.25%) 2.5 MG/ML 30 ML VIAL INFILTRATI ONE ×2 (17:34)
[2021-11-30] MEDS ORDERED: dexAMETHasone 20 MG/5 ML VIAL ONE (17:34)
--- NOTE | 2021-11-30 18:14 | Operative Report ---
Operative Report Operative Report: Date of procedure: November 30, 2021 Pre-operative diagnosis: Intrauterine at 40 weeks with arrest of dilatation and descent and nonreassuring heart tones. Body mass index of 48 Post-operative diagnosis: Same Procedure name(s): Primary low transverse section Surgeon: Fareed Flanagan MD Full Decator Operator: NAOMY Anesthesia: Epidural EBL: Complications: None Findings: Patient with a normal uterus tubes and ovaries bilaterally. Female infant weight 8 pounds 4 ounces Apgars 8 at 1 minute and 9 at 5 minutes Specimen(s): None Procedure: The patient was brought to the operating room. Her epidural was dosed was placed without any complications. She was then placed in left lateral tilt. Prepped and draped in the usual sterile manner. After testing for adequate anesthesia level, a Pfannenstiel incision was made. This incision was taken down to the fascia. The fascia was then nicked in the midline. This incision was extended out laterally with Benítez scissors. The fascia was then sharply and bluntly from the underlying rectus muscles. The rectus muscles were bluntly and sharply . The peritoneum was then entered with the booster operator's fingers. This incision was spread vertically with care not to damage the bladder below. The Pardeep self-retaining tractor was then placed without any difficulty. The bladder flap was then formed sharply and bluntly with Metzenbaum scissors. A transverse incision was made in lower uterine segment. This incision was extended laterally with the operators fingers. The amniotic sac was then entered bluntly with the booster operator's fingers. The infant was delivered from the vertex position. Bulb suction on the mother's abdomen. Cord was double clamped and cut. There was a small superficial laceration on the 's left cheek, both parents were informed. The was then passed to the nursery personnel who were in attendance. The above scores were given by the nursery personnel. The placenta was then bluntly removed. The uterus was then externalized and wiped clean the remaining products. The uterine incision was closed in layers. The first incision was closed in a locking manner using 0 Vicryl. This was followed by imbricating stitch also with 0 Vicryl. This closure was hemostatic after additional [id number] suture. The bladder flap was copiously irrigated and found to be hemostatic. The pelvis was copiously irrigated and found to be hemostatic. The uterus was then placed back to the patient's abdomen. The retractors were removed. The rectus muscles were inspected and found to be hemostatic. The fascia was then closed in a running manner using 0 Vicryl. This incision was hemostatic irrigation Bovie. The skin was reapproximated with 4-0 Vicryl subcuticularly. The patient tolerated procedure well. Her urine was blood-tinged as it was at the beginning of the case. The infant was admitted to the well baby nursery. The patient was accompanied to recovery room in good condition. Instrument count correct times 3.
--- NOTE | 2021-11-30 18:24 | Anesthesia Day of Surgery ---
Anesthesia Day of Surgery - Day of Surgery Patient Examined: Yes Patient H&P Reviewed: Yes Patient is NPO: Yes
--- NOTE | 2021-11-30 18:26 | Progress Note ---
Regional Anesthesia Block - Regional Anesthesia Block Start Time: 19:08 Stop Time: 19:13 Performed By:: JEFF DE SANTIAGO Procedure: Patient consented for TAP block for post surgical pain management. Patient identified, monitors placed, and time out performed. TAP identified bilaterally via ultrasound. Skin prepped bilaterally with [chlorhexidine] and [22g stimuplex] needle advanced to the TAP. [Marcaine 0.25% 30ml] injected under ultrasound guidance on the [left] side. [Marcaine 0.25% 30ml] injected under ultrasound guidance on the [right] side. Negative aspiration every 5mL, No change in heart rate or rhythm. Patient tolerated the procedure well. No apparent complications seen.
[2021-11-30] MEDS ORDERED: D5W/LACTATED RINGERS 1,000 ML IV SCH (19:34)
[2021-11-30] MEDS ORDERED: NALOXONE 0.4 MG/1 ML INJ IV PRN (19:34)
[2021-11-30] MEDS ORDERED: SIMETHICONE 80 MG CHEW TAB PO PRN (19:34)
[2021-11-30] MEDS ORDERED: HYDROCORTISONE 25 MG RECTAL SUPP PR PRN (19:34)
[2021-11-30] MEDS ORDERED: WITCH HAZEL/ GLYCERIN PAD TP PRN (19:34)
[2021-11-30] MEDS ORDERED: MAGNESIUM HYDROXIDE (MOM) ORAL LIQD UDC PO PRN (19:34)
[2021-11-30] MEDS ORDERED: LANOLIN/ZINC/DIMETHICONE (LANSINOH) 7 GM TP PRN (19:34)
[2021-11-30] MEDS: KETOROLAC 30 MG/1 ML INJ IV SCH (20:57)
[2021-12-01] MEDS: ceFAZolin/NS 1 GM/50 ML 1 GM/50 ML BAG IV SCH ×2 (00:33→09:50)
[2021-12-01] MEDS: KETOROLAC 30 MG/1 ML INJ IV SCH ×3 (03:00→16:41)
[2021-12-01] MEDS: FERROUS SULFATE 325 MG TAB PO SCH (09:50)
[2021-12-01] MEDS: HYDROcodone/ACETAMINOPHEN 5-325 MG TAB PO PRN (09:50)
[2021-12-01] MEDS: PRENATAL VIT27-FE FUMARATE-FOLIC ACID VIT TAB PO SCH (09:50)
--- NOTE | 2021-12-01 12:49 | Progress Note ---
Assessment and Plan - Patient Problems (1) Active labor at term Current Visit: Yes Status: Resolved (2) Small for dates affecting management of mother Current Visit: No Status: Resolved Qualifiers: Fetus number: single or unspecified fetus Trimester: third trimester Qualified Code(s): O36.5930 - Maternal care for other known or suspected poor growth, third trimester, not applicable or unspecified (3) BMI 45.0-49.9, adult Current Visit: Yes Status: Acute (4) delivery delivered Onset Date: ~11/30/21 Current Visit: Yes Status: Acute Plan to address problem: Postoperative day #1. Patient without nausea vomiting. Patient tolerating advancing diet well Patient without fever. Will ambulate in halls. We will co ntinue routine postoperative care. Infant is doing well. Will continue routine post operative care. Patient's postoperative hematocrit is 34% patient is breast-feeding and and decided about control. Subjective - Subjective Date of service: 12/01/21 Principal diagnosis: Postop day 1 section Interval history: l Patient reports: appetite normal, voiding normally, pain well controlled, ambulating normally, no flatus, no bowel movement [place]: doing well Objective - Vital Signs Latest vital signs: Vital Signs Temp Pulse Resp BP BP Pulse Ox Pulse Ox 12/01/21 08:00 98.6 F 73 18 133/79 97 100 12/01/21 05:45 98.5 F 76 20 120/75 95 12/01/21 03:00 20 12/01/21 00:00 98 F 69 20 113/69 98 11/30/21 20:57 20 11/30/21 19:50 99.0 F 90 20 115/73 100 100 11/30/21 19:00 98.6 F 89 24 119/76 93 11/30/21 18:45 88 27 H 122/97 100 11/30/21 18:30 100 H 33 H 128/46 100 11/30/21 18:25 104 H 17 103/67 100 11/30/21 18:20 98 H 28 H 90/71 100 11/30/21 18:15 99.1 F 89 23 117/86 100 11/30/21 16:28 108 H 100 11/30/21 16:23 98 H 98 11/30/21 16:22 95 H 93 11/30/21 16:18 85 100 11/30/21 16:17 83 155/78 11/30/21 16:13 84 100 11/30/21 16:08 92 H 100 11/30/21 16:03 79 100 11/30/21 16:02 99 H 144/80 11/30/21 15:58 76 100 11/30/21 15:53 91 H 100 11/30/21 15:49 84 138/76 11/30/21 15:48 84 100 11/30/21 15:43 86 99 11/30/21 15:38 82 100 11/30/21 15:33 87 120/57 100 11/30/21 15:28 110 H 100 11/30/21 15:23 83 100 11/30/21 15:18 86 100 11/30/21 15:17 88 122/68 11/30/21 15:13 94 H 100 11/30/21 15:08 89 100 11/30/21 15:03 92 H 118/75 100 11/30/21 14:58 90 100 11/30/21 14:53 125 H 100 11/30/21 14:48 100 H 127/61 100 11/30/21 14:43 82 100 11/30/21 14:38 77 100 11/30/21 14:33 80 118/62 100 11/30/21 14:28 82 100 11/30/21 14:23 84 100 11/30/21 14:18 78 100 11/30/21 14:17 85 108/58 11/30/21 14:13 81 100 11/30/21 14:08 78 100 11/30/21 14:03 73 100 11/30/21 14:02 84 114/59 11/30/21 13:58 79 100 11/30/21 13:53 76 99 11/30/21 13:48 78 122/63 98 11/30/21 13:42 83 99 11/30/21 13:37 82 99 11/30/21 13:34 81 132/66 11/30/21 13:32 78 97 11/30/21 13:27 84 98 11/30/21 13:22 74 97 11/30/21 13:17 79 140/78 97 11/30/21 13:12 82 98 11/30/21 13:07 80 96 11/30/21 13:03 83 138/90 11/30/21 13:02 82 98 11/30/21 12:57 76 99 11/30/21 12:52 81 95 11/30/21 12:48 86 142/91 11/30/21 12:47 93 H 96 Intake and Output 11/30/21 12/01/21 12/01/21 22:59 06:59 14:59 Intake Total 3577.649 290 Output Total 750 1050 400 Balance 2827.649 -760 -400 Intake: IV 3217.649 50 ANCEF/NS 1 GM/50 ML 1 gm 50 In 50 ml @ 100 mls/hr IV Q8H GLEN Rx#:[id number] Lactated Ringers 1,000 ml 514.583 @ 125 mls/hr IV DIRECT GLEN Rx#:[id number] PITOCin/NS 30 UNIT/500ML 3.066 30,000 milliunits In 500 ml @ 1 MILLIUNITS/MIN 1 mls/hr IV DIRECT ONE Rx#:[id number] Oral 360 240 Output: Urine 750 1050 400 Indwelling Catheter 1050 Uretheral (Dave) 250 Void 400 Other: Total, Intake Amount 360 240 Total, Output Amount 500 200 # Voids Void 1 Estimated Blood Loss 1,325 - Exam Breasts: Present: deferred Cardiovascular: Present: Regular rate Lungs: Present: Normal air movement Abdomen: Present: normal appearance, tenderness (Appropriately postop), other (Incision healing well without signs of infection) Uterus: Present: firm Extremities: Present: normal, edema Incision: Present: normal, dry, intact
[2021-12-01] MEDS ORDERED: IBUPROFEN 600 MG TAB PO PRN (18:16)
[2021-12-01] MEDS ORDERED: MEASLES, MUMPS & RUBELLA 12,500 UNIT/0.5 ML VACCINE SUB-Q ONE (18:18)
--- NOTE | 2021-12-01 20:08 | Post Anesthesia Evaluation ---
- Post Anesthesia Evaluation Patient Participated: Yes Airway Patent: Yes Stable Respiratory Function: Yes Nausea/Vomiting: No Temp > 96.8F: Yes Pain Manageable: Yes Adequeate Hydration: Yes Anesthesia Complications: No Block Receding Appropriately: Yes Patient on Ventilator: No
[2021-12-02] MEDS: HYDROcodone/ACETAMINOPHEN 5-325 MG TAB PO PRN ×2 (01:03→06:41)
[2021-12-02] MEDS ORDERED: TETANUS,DIPH,PERTUSS(ACELL) VACCINE 0.5 ML SYRINGE IM ONE (06:00)
--- NOTE | 2021-12-02 09:37 | Discharge Summary ---
Providers - Providers Date of Admission: 11/30/21 00:21 Date of discharge: 12/02/21 (pt desires discharge home) Attending physician: ERAN HOLLAND 11/30/21 19:34 Consult to Field Adjuster [CONS] Routine Reason For Exam: Primary care physician: CARMELO SWEET MD Hospitalization Reason for admission: active labor, IUP at term Delivery: Procedure: section, primary low transverse Episiotomy: none Laceration: none Incision: normal, dry, intact Other procedures: none complications: none Discharge diagnosis: IUP at term delivered baby: female Condition at discharge: Good Disposition: HOME / SELF CARE / HOMELESS Plan - Discharge Medications Prescriptions: Ibuprofen [Motrin] 800 mg PO TID PRN #30 tablet PRN Reason: Pain oxyCODONE /ACETAMINOPHEN [Percocet 5/325 mg] 1 - 2 tab PO Q6HR PRN #20 tablet PRN Reason: Pain - Provider Discharge Summary Activity: routine, no sex for 6 weeks, no heavy lifting 4 weeks, no strenuous exercise Diet: routine Instructions: routine Additional instructions: [] Smoking cessation referral if applicable(refer to patient education folder for contact #) [] Refer to [facility]'s [facility] Booklet Call your doctor immediately for: * Fever > 100.5 * Heavy vaginal bleeding ( >1 pad per hour) * Severe persistent headache * Shortness of breath * Reddened, hot, painful area to leg or breast * Drainage or odor from incision. * Keep incision clean and dry at all times and follow doctor's instructions regarding bathing/showering Please call [phone] and schedule your visit in 1 week. Thank you! - Follow up plan Follow up: CARMELO SWEET MD [Primary Care Provider] - 7 Days ZACK BARRON MD [Staff Physician] - 7 Days
[2021-12-02] MEDS: PRENATAL VIT27-FE FUMARATE-FOLIC ACID VIT TAB PO SCH (10:30)
[2021-12-02] MEDS: FERROUS SULFATE 325 MG TAB PO SCH (10:30)
[2021-12-02 10:57] VITALS: BP 124/69
== END 2021-12-02 11:10 | disposition home or self-care (01) | DRG 765 ==
LOC: TRG 22:21 → APU 22:22 → LD 11-30 00:21 → TRG 11-30 08:16 → APU 11-30 16:34 → OB 11-30 20:07
PROVIDERS: ADMIT Obstetrics & Gynecology; ATTEND Obstetrics & Gynecology
PROC: 10D00Z1 Extraction of Products of Conception, Low, Open Approach (ICD-10-PCS; principal; 2021-11-30)
PROC: 3E0134Z Introduction of Serum, Toxoid and Vaccine into Subcutaneous Tissue, Percutaneous Approach (ICD-10-PCS; 2021-12-01)
PROC: 3E0234Z Introduction of Serum, Toxoid and Vaccine into Muscle, Percutaneous Approach (ICD-10-PCS; 2021-12-02)
DX: O99.824 Streptococcus B carrier state complicating childbirth (principal); O36.5930 Maternal care for other known or suspected poor fetal growth, third trimester, not applicable or unspecified; O99.62 Diseases of the digestive system complicating childbirth; O99.214 Obesity complicating childbirth; Z20.822 Contact with and (suspected) exposure to COVID-19; O76 Abnormality in fetal heart rate and rhythm complicating labor and delivery; O62.0 Primary inadequate contractions; Z3A.40 40 weeks gestation of pregnancy; Z37.0 Single live birth; Z23 Encounter for immunization
CPT/HCPCS: 36415; 76815; 76816; 76819; 80053; 80307; 81001; 83615; 84112; 84550; 85014; 85018; 85027; 86592; 86706; 86762; 86803; 86850; 86900; 86901; 87806; G0378; J3490; J7060; J0290; J0690; J0702; J1100; J1885; J2405; J2590; J2765; J7120; J7121; U0003